=== PATIENT | male | born 1990 | race Caucasian/White ===

== ENCOUNTER 2017-02-16 23:30 | Emergency (ER) | payer OTHER ==
[~2017-02-16] VITALS: Ht 170.2 cm; Wt 65.8 kg
--- NOTE | ~2017-02-16 | EKG ---
[place] [address] [facility] [place] [address] ELECTROCARDIOGRAM REPORT Name: KAILEY DAWSON Room #: [facility] [id number] Admission: 02/16/17 Attend Phys: Discharge: 02/17/17 Date of : 89 Report #: [id number] THIS REPORT FOR: //name// [facility] ED Test Date: 2017-02-17 Test Time: 00:32:28 Pat Name: KAILEY DAWSON Department: Room: Gender: M [employer] Layer: HANNY : 1990 Requested By: July Nava Order Number: [id number] MD: Ricardo Sebastian Measurements Intervals Whitt Rate: 58 P: 70 GA: 140 QRS: 96 QRSD: 101 T: 23 QT: 378 QTc: 372 Interpretive Statements Sinus rhythm Borderline right axis deviation ST elev, probable normal early repol pattern No previous ECG available for comparison Electronically Signed On 02-17-2017 10:57:11 CDT by Ricardo Sebastian [email or web address] <ELECTRONICALLY SIGNED> By: Ricardo Sebastian MD 02/17/17 1057 0032 0032 Ricardo Sebastian MD /ROCKY
[2017-02-17 01:14] LABS: HEMATOCRIT 43.6 % (42.0-52.0); HEMOGLOBIN 15.1 gm/dL (14.0-18.0); MCH 30.6 pg (26.0-34.0); MCHC 34.5 g/dL (28.0-37.0); MCV 88.7 fL (80.0-100.0); RBC 4.92 mil/uL (4.50-6.00); RDW 13.5 % (10.5-14.5); WBC 20.5 thou/uL (4.0-11.0)
[2017-02-17 01:19] LABS: ANION GAP 10 mmol/L (7-16); BUN 15 mg/dL (7-18); CALCIUM 10.5 mg/dL (8.5-10.1); CHLORIDE 102 mmol/L (98-107); CO2 26 mmol/L (21-32); CREATININE 0.8 mg/dL (0.7-1.3); GLUCOSE 82 mg/dL (74-106); MANUAL DIFF YES; SODIUM 138 mmol/L (136-145)
[2017-02-17 01:25] LABS: ALBUMIN 4.4 g/dL (3.4-5.0); ALKALINE PHOSPHATASE 91 U/L (46-116); DIRECT BILIRUBIN < 0.1 mg/dL (<0.1-0.3); SGOT 22 U/L (15-37); SGPT 28 U/L (30-65); TOTAL BILIRUBIN 0.5 mg/dL (<0.1-1.0); TOTAL PROTEIN 7.8 g/dL (6.4-8.2)
[2017-02-17 03:02] LABS: ABSOLUTE NEUTROPHILS 16.2 thou/uL (1.4-8.2); TOTAL CELL COUNT 100
[2017-02-17 03:03] LABS: PLATELET COUNT ND thou/uL (150-400)
[2017-02-17 04:24] VITALS: BP 102/57
== END 2017-02-17 04:25 | disposition home or self-care (01) ==
LOC: ER 23:30
PROVIDERS: Emergency Medicine
DX: R07.9 Chest pain, unspecified (principal); D72.829 Elevated white blood cell count, unspecified; R13.10 Dysphagia, unspecified; F17.210 Nicotine dependence, cigarettes, uncomplicated; F10.99 Alcohol use, unspecified with unspecified alcohol-induced disorder